=== PATIENT | male | born 1955 | race Caucasian/White ===

== ENCOUNTER → 2016-09-06 | Outpatient (CLI) | payer BC, OTHER | LOC: BRMIMAGING 11:26 | PROVIDERS: ATTEND Internal Medicine | DX: M19.041 Primary osteoarthritis, right hand (principal); M19.042 Primary osteoarthritis, left hand; M19.072 Primary osteoarthritis, left ankle and foot; M19.071 Primary osteoarthritis, right ankle and foot; M85.80 Other specified disorders of bone density and structure, unspecified site; M45.2 Ankylosing spondylitis of cervical region; M50.30 Other cervical disc degeneration, unspecified cervical region; M51.36 Other intervertebral disc degeneration, lumbar region; M48.02 Spinal stenosis, cervical region; M41.86 Other forms of scoliosis, lumbar region | CPT/HCPCS: 72052-PO; 72100-PO; 73130-PO; 73610-PO ==